=== PATIENT | male | born 2000 | race Asian ===

== ENCOUNTER 2024-01-04 12:05 | Emergency (ER) | payer MEDICAID ==
[~2024-01-04] VITALS: Ht 165.1 cm; Wt 58.0 kg
[2024-01-04 12:15] VITALS: O2SAT 98
[2024-01-04 14:12] LABS: BASOPHILS % 0.3 % (0.0-2.0); EOSINOPHILS % 1.1 % (0.0-5.0); HEMATOCRIT. 44.2 % (42.0-52.0); HEMOGLOBIN. 14.7 g/dL (14.0-18.0); LYMPHOCYTES % 54.9 % (20.0-50.0); MEAN CORPUSCULAR HEMOGLOBIN 31.3 pg (28.0-32.0); MEAN CORPUSCULAR HGB CONC 33.2 g/dL (31.0-37.0); MEAN CORPUSCULAR VOLUME 94.3 fL (80.0-94.0); NEUTROPHILS % 37.7 % (40.0-76.0); PLATELET 219 x1000/uL (130-400); RED BLOOD CELL COUNT 4.68 mill/uL (4.7-6.1); RED CELL DISTRIBUTION WIDTH 13.7 % (11.6-14.6); WHITE BLOOD COUNT 5.3 x1000/uL (4.5-11.0)
[2024-01-04 14:23] LABS: CHLORIDE 109 mEq/L (98-107); POTASSIUM 4.1 mEq/L (3.5-5.1); SODIUM 140 mEq/L (136-145)
[2024-01-04 14:24] LABS: CARBON DIOXIDE 28 mEq/L (21-32)
[2024-01-04 14:25] LABS: CALCIUM 9.8 mg/dL (8.7-10.4)
[2024-01-04 14:29] LABS: CREATININE 0.8 mg/dL (0.6-1.3); GLUCOSE 103 mg/dL (70-105); UREA NITROGEN BLOOD 10 mg/dL (9-23)
[2024-01-04 14:31] LABS: ALANINE AMINOTRANSFERASE 11 IU/L (10-49); ALBUMIN 4.9 g/dL (3.2-4.8); ASPARTATE AMINOTRANSFERASE 20 IU/L (<34); BILIRUBIN DIRECT 0.3 mg/dL (<=3.0)
[2024-01-04 16:14] VITALS: BP 112/76; PULSE 73; RESP 18; TEMP 36.72516; O2SAT 99
== END 2024-01-04 18:57 | disposition home or self-care (01) ==
LOC: ER 12:05
DX: M54.2 Cervicalgia (principal)
CPT/HCPCS: 36415; 80048; 80076; 85025; 99283

== ENCOUNTER 2024-02-03 22:21 | Emergency (ER) | payer MEDICAID, OTHER ==
[~2024-02-03] VITALS: Ht 162.6 cm; Wt 57.9 kg
[2024-02-03 22:26] VITALS: O2SAT 99
[2024-02-03 23:03] VITALS: O2SAT 97
[2024-02-04 02:00] LABS: BASOPHILS % 0.2 % (0.0-2.0); HEMATOCRIT. 42.2 % (42.0-52.0); HEMOGLOBIN. 14.3 g/dL (14.0-18.0); LYMPHOCYTES % 56.5 % (20.0-50.0); MEAN CORPUSCULAR HEMOGLOBIN 31.9 pg (28.0-32.0); MEAN CORPUSCULAR VOLUME 93.9 fL (80.0-94.0); MEAN PLATELET VOLUME 8.4 fl (7.4-10.4); MONOCYTES % 7.8 % (2.0-8.0); NEUTROPHILS % 34.5 % (40.0-76.0); PLATELET 201 x1000/uL (130-400); RED BLOOD CELL COUNT 4.49 mill/uL (4.7-6.1); RED CELL DISTRIBUTION WIDTH 14.5 % (11.6-14.6)
[2024-02-04 02:01] LABS: CHLORIDE 104 mEq/L (98-107); POTASSIUM 3.7 mEq/L (3.5-5.1); SODIUM 139 mEq/L (136-145)
[2024-02-04 02:02] LABS: CALCIUM 9.6 mg/dL (8.7-10.4); CARBON DIOXIDE 30 mEq/L (21-32)
[2024-02-04 02:07] LABS: CREATININE 0.9 mg/dL (0.6-1.3); GLUCOSE 73 mg/dL (70-105); UREA NITROGEN BLOOD 11 mg/dL (9-23)
[2024-02-04] MEDS ORDERED: IBUP-2028 MT (02:37)
[2024-02-04] MEDS ORDERED: TOPUD PO (02:37)
[2024-02-04] MEDS ORDERED: AMOX1TAB16 MT (02:37)
[2024-02-04 03:07] VITALS: BP 109/66; PULSE 92; RESP 15
[2024-02-04] MEDS: IBUPROFEN 400MG TABLET PO ONE (03:07)
[2024-02-04 03:08] VITALS: TEMP 98.7
[2024-02-04] MEDS: IBUPROFEN 400MG TABLET PO NR (03:08)
[2024-02-04] MEDS: ACETAMINOPHEN 325MG TABLET PO NR (03:08)
[2024-02-04] MEDS: AMOXICILLIN/POTASSIUM CLAVULANATE 875/125MG TAB PO ONE (03:08)
[2024-02-04] MEDS: ACETAMINOPHEN 325MG TABLET PO ONE (03:08)
== END 2024-02-04 04:59 | disposition home or self-care (01) ==
LOC: ER 22:21
DX: R59.0 Localized enlarged lymph nodes (principal); Z20.822 Contact with and (suspected) exposure to COVID-19
CPT/HCPCS: 99284; 80048; 87430; 83605; 85025; 87070; 36415; 84145; 76536; 87426; Z7610

== ENCOUNTER 2024-02-21 05:34 | Emergency (ER) | payer OTHER ==
[~2024-02-21] VITALS: Ht 165.1 cm; Wt 56.0 kg
[~2024-02-21 05:34] MED LIST: AMOX1TAB16 MT; IBUP-2028 MT; TOPUD PO
[2024-02-21 05:42] VITALS: BP 105/71; PULSE 83; TEMP 97.7; O2SAT 98
[2024-02-21] MEDS ORDERED: FLUORESCEIN SODIUM 1MG/STRIP BOTHEYE ONE (06:00)
[2024-02-21] MEDS ORDERED: TETRACAINE 0.5% OPHTH DROPS 4ML EACHEYE ONE (06:00)
[2024-02-21] MEDS: TETRACAINE 0.5% OPHTH DROPS 4ML EACHEYE NR (08:37)
[2024-02-21] MEDS: FLUORESCEIN SODIUM 1MG/STRIP BOTHEYE NR (08:37)
== END 2024-02-21 10:00 | disposition left against medical advice (07) ==
LOC: ER 05:41
DX: H57.11 Ocular pain, right eye (principal); Z98.890 Other specified postprocedural states; Z90.89 Acquired absence of other organs
CPT/HCPCS: 99283